=== PATIENT | male | born 1955 | race Caucasian/White ===

== ENCOUNTER 2022-03-11 17:47 | Emergency (ER) | payer BC, SELFPAY ==
--- NOTE | ~2022-03-11 | XR_ITS ---
EXAM: XR knee RT 3V DATE: 03/11/2022 18:15 HISTORY: fell playing pickle ball, patella pain. very swollen . COMPARISON: None available. FINDINGS: Normal mineralization. No fracture or dislocation. No lytic or blastic lesion. Tricompartm ental osteoarthritis. No erosion or periosteal change. Punctate density or calcification in the soft tissues anterior to the patellar tendon, may represent vascular calcification or debris. Marked prepa tellar soft tissue swelling. IMPRESSION: No acute osseous finding in the right knee. Large prepatellar soft tissue swelling. Anter ior soft tissue vascular calcification versus soft tissue debris. Reviewed, dictated and finalized at location K. IMPRESSION: No acute osseous finding in the right knee. Large prepatellar soft tissue swelling. Anterior soft tissue vascular calcification versus soft tissue debris.
[2022-03-11 18:03] VITALS: BP 165/101; PULSE 72; RESP 16; TEMP 37; O2SAT 99
--- NOTE | 2022-03-11 18:28 | ED.GENADULT ---
HPI - General Adult General Chief complaint: Extremity Injury, Lower Stated complaint: INJURED R KNEE Source: patient and family Mode of arrival: ambulatory Limitations: no limitations History of Present Illness HPI narrative: Patient presents for evaluation of a right knee injury. He was playing pickle ball just prior to arrival at the time of the injury. He indicates a ball was moving past him and he reached to his side, at which time he fell to the ground. His knee hit concrete. His head hit a chain link fence. No loss of consciousness. He is not anticoagulated. No vomiting since episode. Reports a considerable amount of swelling in the right knee. He states his current pain level is 3 out of 10 in severity. No descriptive quality to the pain. Pain was shooting into the proximal right thigh earlier, although that has improved. He has been ambulating since the time of the injury. He had taken 600 mg of ibuprofen around 1600 today for pain associated with Plantar fasciitis. His tetanus is up to date. Related Data Allergies Allergy/AdvReac Type Severity Reaction Status Date / Time NKDA Allergy Unknown Other Uncoded 03/11/22 17:57 Review of Systems Review of Systems: CONSTITUTIONAL: Denies fever, chills, or sweats. EYES: Denies visual changes, redness, or discharge. ENT: Denies rhinorrhea, congestion, sore throat, or otalgia. CARDIOVASCULAR: Denies chest pain, palpitations, or edema. RESPIRATORY: Denies cough or dyspnea. GASTROINTESTINAL: Denies abdominal pain, nausea, vomiting, or diarrhea. GENITOURINARY: Denies dysuria or hematuria. SKIN: Reports abrasion to right knee. Denies rash or itching. MUSCULOSKELETAL: Reports swelling and pain to right knee NEUROLOGIC: Denies headache, numbness, dizziness, or weakness. PSYCHIATRIC: Denies anxiety or depression. [facility] Past Medical History Medical History Contusion of right knee Hematoma Plantar fasciitis Surgical History Surgical History H/O removal of cyst Family History Family History Mother Family history non-contributory Social History Social History Alcohol intake: current Alcohol use details: twice per week Substance use: never Living arrangements: with family Gender identity (if verbalized by the patient): Male Sexual Orientation (if Verbalized by the Patient): Straight or Heterosexual Spiritual care concerns: No Exam Narrative: GENERAL: Well-appearing, well-nourished, and in no acute distress. HEAD: Normocephalic, atraumatic. EYES: PERRLA and EOMI. ENT: Nares clear, no rhinorrhea or epistaxis. Mucous membranes moist. Oropharynx without tonsillar hypertrophy exudate or other lesions. Bilateral TMs pearly hayes nonbulging NECK: Supple. No adenopathy or masses. No carotid bruits or JVD CHEST: Clear to auscultation. No respiratory distress. No wheezes rales or rhonchi HEART: Regular rate and rhythm. No murmur heard. Normal peripheral pulses. ABDOMEN: Soft, nontender, nondistended, normal active bowel sounds. EXTREMITIES: There is marked soft tissue swelling to the anterior aspect of the right knee with tenderness noted to the superior and medial aspect of the right knee. Full range of motion intact. No crepitus. SKIN: There is a superficial abrasion noted to the anterior aspect of the right knee. Skin is warm, dry, no rash. NEURO: No focal deficits. Alert and oriented x3. PSYCH: Normal mood and affect. Course Course Emergency Course: This is a 66-year-old gentleman who presented for evaluation of right knee injury. On physical exam concerned he had a hemarthrosis versus hematoma. X-ray negative for fracture. Patient's range of motion is intact and he actually has limited pain in the affected area.
== END 2022-03-11 19:05 | disposition home or self-care (01) ==
PROVIDERS: Emergency Provider Nurse Practitioner
DX: S80.01XA Contusion of right knee, initial encounter (principal); W19.XXXA Unspecified fall, initial encounter
CPT/HCPCS: 73562; 99213; G0463; L1830

== ENCOUNTER 2022-07-04 17:45 | Emergency (ER) | payer BC, SELFPAY ==
[2022-07-04 17:59] VITALS: BP 148/86; PULSE 104; RESP 16; TEMP 37.3; O2SAT 96
[2022-07-04 18:04] VITALS: BP 148/86; PULSE 104; RESP 16; TEMP 37.3; O2SAT 96
--- NOTE | 2022-07-04 18:12 | ED.URI ---
HPI - URI/Sore Throat General Chief Complaint: Upper Respiratory Infection Stated Complaint: HEADACHE/SINUS/CHEST CONGESITON/COUGH Time Seen by Provider: 07/04/22 18:10 Source: patient, RN notes reviewed and old records reviewed Mode of arrival: ambulatory Limitations: no limitations History of Present Illness HPI Narrative: 66-year-old male who presents to [facility] with complaints of headache, sinus congestion, chest congestion and cough with body aches and some fevers which started Saturday night,. Patient states he has had a fever with highest noted to be around 101F has not taken anything for his symptoms. Patient reports that his is also ill with similar symptoms and did home COVID test which was negative. Patient reports no COVID vaccinations or Flu shot did have COVID previously. MD elicited complaint: fever, cough, rhinorrhea, nasal congestion and other (body aches) Onset (ago): day(s) (day 3 of symptoms) Pain scale (0-10): 3 Treatments prior to arrival: none Related Data Allergies Allergy/AdvReac Type Severity Reaction Status Date / Time NKDA Allergy Unknown Other Uncoded 07/04/22 17:58 Review of Systems Review of Systems: CONSTITUTIONAL: report fever, chills, or sweats. EYES: Denies visual changes, redness, or discharge. ENT: report rhinorrhea, cough, mild sore throat, no otalgia. CARDIOVASCULAR: Denies chest pain, palpitations, or edema. RESPIRATORY: report cough did dyspnea. GASTROINTESTINAL: Denies abdominal pain, nausea, vomiting, or diarrhea. GENITOURINARY: Denies dysuria or hematuria. SKIN: Denies rash or itching. MUSCULOSKELETAL: Denies back pain, joint pain, positive body aches NEUROLOGIC: positive headache, no numbness, or weakness. PSYCHIATRIC: Denies anxiety or depression. All systems reviewed & are unremarkable except as noted in HPI and below PMFSH Past Medical History Medical History Contusion of right knee Hematoma Plantar fasciitis Surgical History Surgical History H/O removal of cyst (~1983) Family History Family History Mother Family history non-contributory Social History Social History Smoking status: Unknown if ever smoked Alcohol intake: current Alcohol use details: twice per week Substance use: never Lack of Transportation: No Lack of Food: Never True Current Housing: I Have Housing Concerned About Future Housing: No Difficulty Paying Gas/Electric Bills: No Difficulty Paying for Meds: No Currently Unemployed: No Education: High School Diploma/GED Difficulty w/ Childcare or Family Care: No Gender identity (if verbalized by the patient): Male Sexual Orientation (if Verbalized by the Patient): Straight or Heterosexual Spiritual care concerns: No Comments At time of signature, agree with nursing past medical, surgical, social and family history. There is no relevant family history pertinent to the presenting complaint Exam Narrative: GENERAL: Well-appearing, well-nourished, and in no acute distress. HEAD: Normocephalic, atraumatic. EYES: PERRLA and EOMI. ENT: Nares clear, clear rhinorrhea no epistaxis. Mucous membranes moist. TMs normal with good light reflex, throat pink no lesions exudate or swelling NECK: Supple. no lymphadenopathy CHEST: Clear to auscultation. No respiratory distress. SaO2 96% on room air some cough noted HEART: Regular rate and rhythm. No murmur heard. Normal peripheral pulses. ABDOMEN: Soft, nontender, nondistended, normal active bowel sounds. EXTREMITIES: Normal range of motion. No edema. SKIN: Warm, dry, no rash. NEURO: No focal deficits. Alert and oriented x3. Course Course Emergency Course: Patient is aware of diagnosis, understands and agrees to treatment plan.? Anticipatory guidance given
== END 2022-07-04 18:21 | disposition home or self-care (01) ==
PROVIDERS: Emergency Provider Registered Nurse
DX: J10.1 Influenza due to other identified influenza virus with other respiratory manifestations (principal); R05.9 Cough, unspecified; Z86.16 Personal history of COVID-19; Z28.310 Unvaccinated for COVID-19; Z28.9 Immunization not carried out for unspecified reason
CPT/HCPCS: 87804; 99213; G0463